=== PATIENT | female | born 1955 | race Caucasian/White ===

== ENCOUNTER 2019-05-03 17:55 | Inpatient (IN) | payer BC ==
[2019-05-03] MEDS ORDERED: Sodium Chloride 0.9% 10 ML Syringe FLUSH PRN (18:08)
[2019-05-03] MEDS ORDERED: Diltiazem 50 MG/10 ML SDV IVPUSH ONE (18:16)
--- NOTE | 2019-05-03 18:25 | EDM.PDOC ---
ED HPI GENERAL MEDICAL PROBLEM - General Chief Complaint: Cardiovascular Problem Stated Complaint: AFIB Time Seen by Provider: 05/03/19 18:06 Source of Information: Reports: Patient, Old Records, RN Notes Reviewed History Limitations: Reports: No Limitations - History of Present Illness INITIAL COMMENTS - FREE TEXT/NARRATIVE: Patient is a 64-year-old female who presents to the ED for the evaluation of atrial fibrillation. Patient notes that around 1 AM this morning, she states she was awakened from sleep for the feelings of her heart beating really fast. She has not had any associated chest pain, chest pressure or shortness of breath with this. She further denies any nausea/vomiting/diarrhea. She notes she is only aware of the heart beating fast in her chest. She did try some vagal maneuvers and Valsalva at home, however this did not seem to convert the rhythm at all. She takes an 81 mg aspirin daily. Patient notes that sometimes this just converts on its own, sometimes after 12 or 13 hours. She states this was not the case today she is to come to the ER for management. She has a primary care provider in [place], and does see an frame runner, Dr. Castillo out of [place] as well. She notes no past medical history other than the atrial fibrillation. She notes that she had an ablation done, in the early . 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 Denies: Chest Pain, Blood Pressure Problem, Dyspnea on Exertion, Lightheadedness, Syncope GI/Abdominal: Denies: Abdominal Pain, Diarrhea, Nausea, Vomiting Neurological: Denies: Headache, Numbness, Syncope, Tingling Psychiatric: Denies: Anxiety ED EXAM, GENERAL - Physical Exam Exam: See Below Exam Limited By: No Limitations General Appearance: Alert, WD/WN, No Apparent Distress Eye Exam: Bilateral Eye: EOMI, Normal Inspection, PERRL Ears: Normal External Exam Nose: Normal Inspection Throat/Mouth: Normal Inspection, Normal Lips, Normal Teeth, Normal Gums, Normal Oropharynx, Normal Voice, No Airway Compromise Head: Atraumatic, Normocephalic Neck: Normal Inspection Respiratory/Chest: No Respiratory Distress, Lungs Clear, Normal Breath Sounds, No Accessory Muscle Use, Chest Non-Tender Cardiovascular: No Edema, Tachycardia, Irregularly Irregular Peripheral Pulses: 3+: Radial (L), Radial (R) GI/Abdominal: Normal Bowel Sounds, Soft, Non-Tender, No Distention, No Mass Extremities: Normal Inspection, Normal Capillary Refill Neurological: Alert, Oriented, Normal Cognition, No Motor/Sensory Deficits Psychiatric: Normal Affect, Normal Mood Skin Exam: Warm, Dry, Intact, Normal Color, No Rash EKG INTERPRETATION EKG Date: 05/03/19 Time: 18:13 Rhythm: A-Fib (with RVR) Rate (Beats/Min): 170 [place]: Normal P-Wave: Absent QRS: Normal ST-T: Depressed (minimal in inferior leads) QT: Normal Comparison: No Change EKG Interpretation Comments: EKG was reviewed by myself and Dr. Garza, no acute ischemic changes are noted. This was also compared to prior EKGs, and seems to have no change from prior EKGs as well. Course - Vital Signs Last Recorded V/S: Last Vital Signs Temp 97.4 F 05/03/19 18:05 Pulse 150 H 05/03/19 20:16 Resp 16 05/03/19 20:37 BP 111/50 L 05/03/19 20:37 Pulse Ox 97 05/03/19 20:37 - Orders/Labs/Meds Orders: Active Orders 24 hr Category Date Time Status Admission Status [Patient Status] [ADT] Routine ADT 05/03/19 21:11 Ordered EKG Documentation Completion [RC] STAT Care 05/03/19 18:08 Active Peripheral IV Care [RC] . DIRECTED Care 05/03/19 18:08 Active Sodium Chloride 0.9% [Saline Flush] Med 05/03/19 18:08 Active 10 ml FLUSH ASDIRECTED PRN Peripheral IV Insertion Adult [OM.PC] Stat Oth 05/03/19 18:08 Ordered Medication Orders Sodium Chloride (Saline Flush) 10 ml FLUSH ASDIRECTED PRN PRN Reason: Keep Vein Open Last Admin: 05/03/19 18:28 Dose: 10 ml Labs: Laboratory Tests 05/03/19 05/03/19 05/03/19 Range/Units 18:14 18:14 18:14 WBC 11.33 H (3.98-10.04) K/mm3 RBC 5.20 (3.98-5.22) M/mm3 Hgb 15.7 (11.2-15.7) gm/dl Hct 46.9 H (34.1-44.9) % MCV 90.2 (79.4-94.8) fl MCH 30.2 (25.6-32.2) pg MCHC 33.5 (32.2-35.5) g/dl RDW Std Deviation 45.0 (36.4-46.3) fL Plt Count 225 (182-369) K/mm3 MPV 11.5 (9.4-12.3) fl Neut % (Auto) 70.6 (34.0-71.1) % Lymph % (Auto) 19.9 (19.3-51.7) % [place] % (Auto) 8.8 (4.7-12.5) % Eos % (Auto) 0.4 L (0.7-5.8) Baso % (Auto) 0.1 (0.1-1.2) % Neut # (Auto) 7.99 H (1.56-6.13) K/mm3 Lymph # (Auto) 2.26 (1.18-3.74) K/mm3 [place] # (Auto) 1.00 H (0.24-0.36) K/mm3 Eos # (Auto) 0.05 (0.04-0.36) K/mm3 Baso # (Auto) 0.01 (0.01-0.08) K/mm3 Manual Slide Review Normal smear PT 10.8 (9.7-12.0) SECONDS INR 0.99 APTT 23 D (22-31) SECONDS Sodium 140 (136-145) mEq/L Potassium 4.2 (3.5-5.1) mEq/L Chloride 103 (98-107) mEq/L Carbon Dioxide 28 (21-32) mEq/L Anion Gap 13.2 (5-15) BUN 20 H (7-18) mg/dL Creatinine 1.0 (0.55-1.02) mg/dL Est Cr Clr Drug Dosing 48.65 mL/min Estimated GFR (MDRD) 56 (>60) mL/min BUN/Creatinine Ratio 20.0 H (14-18) Glucose 137 H (80-115) mg/dL Calcium 9.0 (8.5-10.1) mg/dL Total Bilirubin 0.4 (0.2-1.0) mg/dL AST 12 L (15-37) U/L ALT 30 (14-59) U/L Alkaline Phosphatase 77 (46-116) U/L Troponin I < 0.017 (0.00-0.056) ng/mL Total Protein 7.4 (6.4-8.2) g/dl Albumin 3.9 (3.4-5.0) g/dl Globulin 3.5 gm/dL Albumin/Globulin Ratio 1.1 (1-2) Meds: Medications Generic Name Dose Route Start Last Admin Trade Name Freq PRN Reason Stop Dose Admin Sodium Chloride 10 ml 05/03/19 18:08 05/03/19 18:28 Saline Flush FLUSH 10 ml ASDIRECTED PRN Administration Keep Vein Open Discontinued Medications Generic Name Dose Route Start Last Admin Trade Name Freq PRN Reason Stop Dose Admin Diltiazem HCl 10 mg 05/03/19 18:16 05/03/19 18:27 Cardizem IVPUSH 05/03/19 18:17 10 mg ONETIME ONE Administration Sodium Chloride 1,000 mls @ 999 mls/hr 05/03/19 19:13 05/03/19 19:17 Normal Saline IV 05/03/19 20:13 999 mls/hr ONETIME ONE Administration Metoprolol Tartrate 50 mg 05/03/19 20:05 05/03/19 20:16 Lopressor PO 05/03/19 20:06 50 mg ONETIME ONE Administration - Re-Assessments/Exams Free Text/Narrative Re-Assessment/Exam: 05/03/19 18:23 Patient presents to the ED for evaluation of possible A. fib. On telemetry, she does appear to have A. fib with RVR. Did order IV to be placed, with labs to be obtained to include CBC, CMP, troponin, coag studies. 10 mg of diltiazem have been ordered for initial management. Plan is to try to put on a diltiazem drip, and possibly use Corvert if needed. Patient notes she has responded well to this in the past. 05/03/19 18:37 Was made aware by nursing staff, that the Cardizem seem to drop her heart rate a little bit, she is in the 80s at times, and ranges from 80-120. However they state that it did drop her pressure as well, to the low 90s systolically. Patient will be given some IV fluids to compensate for this at this time. 05/03/19 19:17 She was reassessed at bedside, she is gotten about 500 mL of fluid, she states that she is feeling well, she is having no chest pain or shortness of breath, she feels no palpitations in her chest any longer. I did discuss the patient's course with Dr. 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 The patient did not completely convert out of A. fib, however she does not have A. fib with RVR at this time, she should be safe to be discharged home, with strict return precautions. She verbalized understanding. 05/03/19 20:00 I was made aware by staff research scientist that when the patient was getting ready to go home , She felt her heart racing again. Her heart rate is resultantly 130s-140s. I have contacted Cardiology at [facility] at this time for further management. 05/03/19 20:07 Dr. Hernandez contacted, and she states that the patient should be on a rate control agent, and suggest Lopressor 50 mg twice daily, first dose to be given in the ER, observe her for 30 minutes to see if her rate improves. If it does improve she will be discharged with echo and stress test orders, and instructions to follow-up with Dr. Castillo within 1 week after the test have been done. If heart rate does not improve, she does suggest admission for heart rate control, with a heparin drip. 05/03/19 21:10 Patient's case was discussed with Dr. Lerner, our hospitalist, and he does accept the patient for admission to the ICU at this time for rate control due to A. fib. Departure - Departure Time of Disposition: 21:13 Disposition: Admitted As Inpatient 67 Condition: Fair Clinical Impression: Atrial fibrillation with RVR Referrals: PCP,Not In Area [Primary Care Provider] - Forms: ED Department Discharge Sepsis Event Note - Evaluation Sepsis Screening Result: No Definite Risk - Focused Exam Vital Signs: Vital Signs Temp Pulse Pulse Resp BP BP Pulse Ox 05/03/19 20:37 16 111/50 L 97 05/03/19 20:16 150 H 110/65 05/03/19 18:51 16 94/61 98 05/03/19 18:05 97.4 F 161 H 16 114/67 100 Date Exam was Performed: 05/03/19 Time Exam was Performed: 21:13 - My Orders Last 24 Hours: My Active Orders 05/03/19 18:08 EKG Documentation Completion [RC] STAT Peripheral IV Care [RC] . DIRECTED Sodium Chloride 0.9% [Saline Flush] 10 ml FLUSH ASDIRECTED PRN Peripheral IV Insertion Adult [OM.PC] Stat 05/03/19 21:11 Admission Status [Patient Status] [ADT] Routine - Assessment/Plan Last 24 Hours: My Active Orders 05/03/19 18:08 EKG Documentation Completion [RC] STAT Peripheral IV Care [RC] . DIRECTED Sodium Chloride 0.9% [Saline Flush] 10 ml FLUSH ASDIRECTED PRN Peripheral IV Insertion Adult [OM.PC] Stat 05/03/19 21:11 Admission Status [Patient Status] [ADT] Routine
[2019-05-03] MEDS ORDERED: Sodium Chloride 0.9% 1,000 ML IV ONE (19:13)
[2019-05-03] MEDS ORDERED: Metoprolol Tartrate 50 MG Tab PO ONE (20:05)
--- NOTE | 2019-05-03 22:15 | PCM.HP.2 ---
H&P History of Present Illness - General Date of Service: 05/03/19 Admit Problem/Dx: Admission Diagnosis/Problem Admission Diagnosis/Problem Atrial fibrillation Source of Information: Patient, Old Records, Provider, RN Notes Reviewed, Other History Limitations: Reports: No Limitations - History of Present Illness Initial Comments - Free Text/Narative: This is a 64 yo healthy white female with no significant past medical hx/o presents to ED for evaluation of rapid hear rate that woke her up from sleep at about 1 AM this morning. She did some vagal maneuvers at home but w/o any success. She states it usually goes back to normal after 12hrs but this time it didn't, so she came to ED for management. Patient carries a hx/o PAF in the past back in 2013 and had an ablation 10 years before that. She used to be on Cardizem but took her self off of it on her own. She denies having been diagnosed with hyperthyroidism. No heavy caffeine or stimulants intake. She does not smoke or drink ETOH. Her initial work up in ED shows a CBC remarkable for WBC of 11.33, Hct of 46.9, Eosinophils of 0.4%, Neutrophil # of 7.99, and Monocyte # of 1.00. Her Chemistry is significant for BUN of 20, BS of 137, and AST of 121. Her EKG shows afib with a HR of 170. Patient received initial treatment in ED prior to coming in to the unit for further management. 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 Exam - Exam Exam: See Below - Vital Signs Vital Signs: Last Vital Signs Temp 36.3 C 05/03/19 18:05 Pulse 60 05/03/19 21:30 Resp 20 05/03/19 21:30 BP 116/98 H 05/03/19 21:30 Pulse Ox 95 05/03/19 21:30 Weight: 53.524 kg - Exam General: Alert, Oriented, Cooperative HEENT: Conjunctiva Clear, EACs Clear, EOMI, Hearing Intact, Mucosa Moist & [place] , Nares Patent, Normal Nasal Septum, Posterior Pharynx Clear, Pupils Equal, Pupils Reactive, TMs Clear Neck: Supple, Trachea Midline, +2 Carotid Pulse wo Bruit, Full Range of Motion. No: JVD, Thyromegaly Lungs: Clear to Auscultation, Normal Respiratory Effort Cardiovascular: Irregular Rhythm, Other (Irregular rate) GI/Abdominal Exam: Normal Bowel Sounds, Soft, Non-Tender, No Organomegaly, No Distention, No Abnormal Bruit, No Mass (Female) Exam: Deferred Rectal (Female) Exam: Deferred Back Exam: Normal Inspection, Full Range of Motion Extremities: Normal Inspection, Normal Range of Motion, Non-Tender, No Pedal Edema, Normal Capillary Refill Peripheral Pulses: 2+: Posterior Tibial (L), Posterior Tibial (R), Dorsalis Pedis (L), Dorsalis Pedis (R) Skin: Warm, Dry, Intact Neuro Extensive - Mental Status: Oriented x3, Normal Cognition, Memory Intact Neuro Extensive - Motor, Sensory, Reflexes: CN II-XII Intact, Normal Gait, Normal Reflexes Psychiatric: Alert, Normal Affect, Normal Mood - Patient Data Lab Results Last 24 hrs: Laboratory Results - last 24 hr 05/03/19 05/03/19 05/03/19 Range/Units 18:14 18:14 18:14 WBC 11.33 H (3.98-10.04) K/mm3 RBC 5.20 (3.98-5.22) M/mm3 Hgb 15.7 (11.2-15.7) gm/dl Hct 46.9 H (34.1-44.9) % MCV 90.2 (79.4-94.8) fl MCH 30.2 (25.6-32.2) pg MCHC 33.5 (32.2-35.5) g/dl RDW Std Deviation 45.0 (36.4-46.3) fL Plt Count 225 (182-369) K/mm3 MPV 11.5 (9.4-12.3) fl Neut % (Auto) 70.6 (34.0-71.1) % Lymph % (Auto) 19.9 (19.3-51.7) % [place] % (Auto) 8.8 (4.7-12.5) % Eos % (Auto) 0.4 L (0.7-5.8) Baso % (Auto) 0.1 (0.1-1.2) % Neut # (Auto) 7.99 H (1.56-6.13) K/mm3 Lymph # (Auto) 2.26 (1.18-3.74) K/mm3 [place] # (Auto) 1.00 H (0.24-0.36) K/mm3 Eos # (Auto) 0.05 (0.04-0.36) K/mm3 Baso # (Auto) 0.01 (0.01-0.08) K/mm3 Manual Slide Review Normal smear PT 10.8 (9.7-12.0) SECONDS INR 0.99 APTT 23 D (22-31) SECONDS Sodium 140 (136-145) mEq/L Potassium 4.2 (3.5-5.1) mEq/L Chloride 103 (98-107) mEq/L Carbon Dioxide 28 (21-32) mEq/L Anion Gap 13.2 (5-15) BUN 20 H (7-18) mg/dL Creatinine 1.0 (0.55-1.02) mg/dL Est Cr Clr Drug Dosing 48.65 mL/min Estimated GFR (MDRD) 56 (>60) mL/min BUN/Creatinine Ratio 20.0 H (14-18) Glucose 137 H (80-115) mg/dL Calcium 9.0 (8.5-10.1) mg/dL Total Bilirubin 0.4 (0.2-1.0) mg/dL AST 12 L (15-37) U/L ALT 30 (14-59) U/L Alkaline Phosphatase 77 (46-116) U/L Troponin I < 0.017 (0.00-0.056) ng/mL Total Protein 7.4 (6.4-8.2) g/dl Albumin 3.9 (3.4-5.0) g/dl Globulin 3.5 gm/dL Albumin/Globulin Ratio 1.1 (1-2) Result Diagrams: 05/04/19 05:35 05/04/19 05:35 Sepsis Event Note - Evaluation Sepsis Screening Result: No Definite Risk - Focused Exam Vital Signs: Vital Signs Temp Pulse Pulse Resp BP BP Pulse Ox 05/03/19 21:30 60 20 116/98 H 95 05/03/19 20:37 16 111/50 L 97 05/03/19 20:16 150 H 110/65 05/03/19 18:51 16 94/61 98 05/03/19 18:05 36.3 C 161 H 16 114/67 100 Date Exam was Performed: 05/04/19 Time Exam was Performed: 13:29 Problem List Initiated/Reviewed/Updated: Yes Orders Last 24hrs: Active Orders 24 hr Category Date Time Status Admission Status [Patient Status] [ADT] Routine ADT 05/03/19 21:11 Active EKG Documentation Completion [RC] STAT Care 05/03/19 18:08 Active Sodium Chloride 0.9% [Saline Flush] Med 05/03/19 18:08 Active 10 ml FLUSH ASDIRECTED PRN Peripheral IV Insertion Adult [OM.PC] Stat Oth 05/03/19 18:08 Ordered Medication Orders Sodium Chloride (Saline Flush) 10 ml FLUSH ASDIRECTED PRN PRN Reason: Keep Vein Open Last Admin: 05/03/19 18:28 Dose: 10 ml Assessment/Plan Comment:: Acute: Atrial Fibrillation with RVR. Carries a hx/o PAF S/p Ablation in the past. Her last episode was back in 2013 and was admitted for treatment. After discharge, she took her self off medications and only on ASA. She here today with similar complaints of rapid heart rate. She was in the 170s in ED. Received initial treatment of Cardizem and Metoprolol in ED. In the unit, heart rate still variable and it goes up to as high as upper teens. [id number] score of 1-low risk. She is already on ASA but due to medical non-compliance and almost near 66 years of age, she should consider oral anticoagulant. Offered NOACs and we agreed on Xarelto for convenience. Metoprolol 15 mg po BID for rate control agent. Mild Leukocytosis with WBC of 11.33. Likely 2/2 stress. She is afebrile. Will monitor. Hyperglycemia with BS of 137. Caries no hx/o Diabetes or glucose intolerance. Likely 2/2 stress. No treatment needed. Plan: Admit to ICU with Tele. Carvedilol 12.5 mg po BID and Xarelto 15 mg po Daily for stroke prophylaxis. Will d/c ASA. regular diet. 2D echo in AM. Informed patient if she is intolerant to anticoagulation, she should consider watchman device as alternative for stroke prophylaxis. - Mortality Measure Prognosis:: Good
[2019-05-03] MEDS ORDERED: Bisacodyl 5 MG Tab PO PRN (22:56)
[2019-05-03] MEDS ORDERED: Acetaminophen 325 MG Tab PO PRN (22:56)
[2019-05-03] MEDS ORDERED: Promethazine 6.25 MG in Sodium Chloride 0.9% 50 ML IV PRN (22:56)
[2019-05-03] MEDS ORDERED: Ondansetron 4 MG/2 ML SDV IV PRN (22:56)
[2019-05-03] MEDS ORDERED: HYDROmorphone 0.5 MG/0.5 ML Syringe IVPUSH PRN (22:56)
[2019-05-03] MEDS ORDERED: Ibuprofen 600 MG Tab PO PRN (22:56)
[2019-05-03] MEDS ORDERED: Ketorolac 15 MG/ML SDV IVPUSH PRN (22:56)
[2019-05-03] MEDS ORDERED: Polyethylene Glycol 3350 Powder 17 GM Packet PO PRN (22:56)
[2019-05-03] MEDS ORDERED: Temazepam 7.5 MG Cap PO PRN (22:56)
[2019-05-03] MEDS ORDERED: Docusate Sodium 100 MG Cap PO PRN (22:56)
[2019-05-03] MEDS ORDERED: Albuterol/Ipratropium 3.0-0.5 MG/3 ML Neb Soln NEB PRN (22:56)
[2019-05-03] MEDS ORDERED: Metoprolol Tartrate 5 MG/5 ML SDV IVPUSH PRN (22:58)
[2019-05-03] MEDS ORDERED: Rivaroxaban 10 MG Tab PO ONE ×2 (22:58→23:55)
[2019-05-03] MEDS ORDERED: Metoprolol Tartrate 25 MG Tab PO SCH (23:00)
[2019-05-03] MEDS ORDERED: Carvedilol 12.5 MG Tab PO ONE (23:55)
[2019-05-04] MEDS ORDERED: Carvedilol 12.5 MG Tab PO SCH (07:00)
[2019-05-04 08:06] VITALS: BP 124/76
[2019-05-04 08:12] VITALS: PULSE 76
--- NOTE | 2019-05-04 10:55 | PCM.DCSUM1 ---
Discharge Summary - Hospital Course Diagnosis: Stroke: No - Discharge Data Discharge Date: 05/04/19 Discharge Disposition: Home, Self-Care 01 Condition: Good - Referral to Home Health Primary Care Physician: PCP Not In Area - Patient Summary/Data Consults: Consultations 05/03/19 22:56 Consult to Case Management/Bookmaker Map [CONS] Routine - Patient Instructions Diet: Heart Healthy Diet - Discharge Plan *PRESCRIPTION DRUG MONITORING PROGRAM REVIEWED*: Not Applicable *COPY OF PRESCRIPTION DRUG MONITORING REPORT IN PATIENT MARLON: Not Applicable Prescriptions/Med Rec: carvediloL [Coreg] 12.5 mg PO BIDMEALS #60 tablet Rivaroxaban [Xarelto] 15 mg PO WITHDINNER #45 tablet Rivaroxaban [Xarelto] 20 mg PO DAILY #30 tablet Home Medications: Home Meds Rivaroxaban [Xarelto] 15 mg PO WITHDINNER #45 tablet 05/04/19 [Rx] Rivaroxaban [Xarelto] 20 mg PO DAILY #30 tablet 05/04/19 [Rx] carvediloL [Coreg] 12.5 mg PO BIDMEALS #60 tablet 05/04/19 [Rx] Patient Handouts: Rivaroxaban oral tablets Forms: ED Department Discharge Referrals: PCP,Not In Area [Primary Care Provider] - - General Info Date of Service: 05/04/19 Subjective Update: Patient is feeling ok, tolerating diet, ambulating, rate controlled, no shortness of breath, palpitations or chest pain - Patient Data Vitals - Most Recent: Last Vital Signs Temp 97.6 F 05/04/19 08:00 Pulse 76 05/04/19 08:11 Resp 20 05/04/19 08:00 BP 124/76 05/04/19 08:11 Pulse Ox 98 05/04/19 08:00 Weight - Most Recent: 55.792 kg Lab Results - Last 24 hrs: Laboratory Results - last 24 hr 05/03/19 05/03/19 05/03/19 Range/Units 18:14 18:14 18:14 WBC 11.33 H (3.98-10.04) K/mm3 RBC 5.20 (3.98-5.22) M/mm3 Hgb 15.7 (11.2-15.7) gm/dl Hct 46.9 H (34.1-44.9) % MCV 90.2 (79.4-94.8) fl MCH 30.2 (25.6-32.2) pg MCHC 33.5 (32.2-35.5) g/dl RDW Std Deviation 45.0 (36.4-46.3) fL Plt Count 225 (182-369) K/mm3 MPV 11.5 (9.4-12.3) fl Neut % (Auto) 70.6 (34.0-71.1) % Lymph % (Auto) 19.9 (19.3-51.7) % O[place]Brien % (Auto) 8.8 (4.7-12.5) % Eos % (Auto) 0.4 L (0.7-5.8) Baso % (Auto) 0.1 (0.1-1.2) % Neut # (Auto) 7.99 H (1.56-6.13) K/mm3 Lymph # (Auto) 2.26 (1.18-3.74) K/mm3 O[place]Brien # (Auto) 1.00 H (0.24-0.36) K/mm3 Eos # (Auto) 0.05 (0.04-0.36) K/mm3 Baso # (Auto) 0.01 (0.01-0.08) K/mm3 Manual Slide Review Normal smear PT 10.8 (9.7-12.0) SECONDS INR 0.99 APTT 23 D (22-31) SECONDS Sodium 140 (136-145) mEq/L Potassium 4.2 (3.5-5.1) mEq/L Chloride 103 (98-107) mEq/L Carbon Dioxide 28 (21-32) mEq/L Anion Gap 13.2 (5-15) BUN 20 H (7-18) mg/dL Creatinine 1.0 (0.55-1.02) mg/dL Est Cr Clr Drug Dosing 48.65 mL/min Estimated GFR (MDRD) 56 (>60) mL/min BUN/Creatinine Ratio 20.0 H (14-18) Glucose 137 H (80-115) mg/dL Calcium 9.0 (8.5-10.1) mg/dL Magnesium (1.8-2.4) mg/dl Total Bilirubin 0.4 (0.2-1.0) mg/dL AST 12 L (15-37) U/L ALT 30 (14-59) U/L Alkaline Phosphatase 77 (46-116) U/L Troponin I < 0.017 (0.00-0.056) ng/mL Total Protein 7.4 (6.4-8.2) g/dl Albumin 3.9 (3.4-5.0) g/dl Globulin 3.5 gm/dL Albumin/Globulin Ratio 1.1 (1-2) Free T4 (0.76-1.46) ng/dL TSH 3rd Generation (0.358-3.74) uIU/mL 05/04/19 05/04/19 05/04/19 Range/Units 05:35 05:35 05:35 WBC 9.27 (3.98-10.04) K/mm3 RBC 4.51 (3.98-5.22) M/mm3 Hgb 13.5 D (11.2-15.7) gm/dl Hct 41.2 (34.1-44.9) % MCV 91.4 (79.4-94.8) fl MCH 29.9 (25.6-32.2) pg MCHC 32.8 (32.2-35.5) g/dl RDW Std Deviation 45.4 (36.4-46.3) fL Plt Count 191 (182-369) K/mm3 MPV 12.5 H (9.4-12.3) fl Neut % (Auto) 66.6 (34.0-71.1) % Lymph % (Auto) 24.1 (19.3-51.7) % O[place]Brien % (Auto) 8.4 (4.7-12.5) % Eos % (Auto) 0.6 L (0.7-5.8) Baso % (Auto) 0.1 (0.1-1.2) % Neut # (Auto) 6.17 H (1.56-6.13) K/mm3 Lymph # (Auto) 2.23 (1.18-3.74) K/mm3 O[place]Brien # (Auto) 0.78 H (0.24-0.36) K/mm3 Eos # (Auto) 0.06 (0.04-0.36) K/mm3 Baso # (Auto) 0.01 (0.01-0.08) K/mm3 Manual Slide Review PT (9.7-12.0) SECONDS INR APTT (22-31) SECONDS Sodium 142 (136-145) mEq/L Potassium 4.5 (3.5-5.1) mEq/L Chloride 108 H (98-107) mEq/L Carbon Dioxide 27 (21-32) mEq/L Anion Gap 11.5 (5-15) BUN 14 (7-18) mg/dL Creatinine 0.7 (0.55-1.02) mg/dL Est Cr Clr Drug Dosing 72.45 mL/min Estimated GFR (MDRD) > 60 (>60) mL/min BUN/Creatinine Ratio 20.0 H (14-18) Glucose 94 (80-115) mg/dL Calcium 8.9 (8.5-10.1) mg/dL Magnesium 2.0 (1.8-2.4) mg/dl Total Bilirubin (0.2-1.0) mg/dL AST (15-37) U/L ALT (14-59) U/L Alkaline Phosphatase (46-116) U/L Troponin I (0.00-0.056) ng/mL Total Protein (6.4-8.2) g/dl Albumin (3.4-5.0) g/dl Globulin gm/dL Albumin/Globulin Ratio (1-2) Free T4 0.93 (0.76-1.46) ng/dL TSH 3rd Generation 2.949 (0.358-3.74) uIU/mL Med Orders - Current: Current Medications Acetaminophen (Tylenol) 650 mg PO Q4H PRN PRN Reason: Pain (Mild 1-3)/fever Albuterol/Ipratropium (Duoneb 3.0-0.5 Mg/3 Ml) 3 ml NEB Q4H PRN PRN Reason: Shortness Of Breath/wheezing Bisacodyl (Dulcolax) 5 mg PO DAILY PRN PRN Reason: Constipation Carvedilol (Coreg) 12.5 mg PO BIDMEALS [facility] Last Admin: 05/04/19 08:11 Dose: 12.5 mg Docusate Sodium (Colace) 100 mg PO BID PRN PRN Reason: Constipation Hydromorphone HCl (Dilaudid) 0.25 mg IVPUSH Q2H PRN PRN Reason: Pain (severe 7-10) Promethazine HCl 6.25 mg/ (Sodium Chloride) 50.25 mls @ 100 mls/hr IV Q6H PRN PRN Reason: Nausea/Vomiting Ketorolac Tromethamine (Toradol) 15 mg IVPUSH Q6H PRN PRN Reason: Pain (moderate 4-6) Stop: 05/08/19 22:57 Metoprolol Tartrate (Lopressor) 5 mg IVPUSH Q4H PRN PRN Reason: Tachycardia Ondansetron HCl (Zofran) 4 mg IV Q6H PRN PRN Reason: Nausea/Vomiting Polyethylene Glycol (Miralax) 17 gm PO DAILY PRN PRN Reason: Constipation Rivaroxaban (Xarelto) 15 mg PO WITHDINNER [facility] Senna/Docusate Sodium (Senna Plus) 1 tab PO BID PRN PRN Reason: Constipation Sodium Chloride (Saline Flush) 10 ml FLUSH ASDIRECTED PRN PRN Reason: Keep Vein Open Last Admin: 05/03/19 18:28 Dose: 10 ml Temazepam (Restoril) 7.5 mg PO BEDTIME PRN PRN Reason: Sleep Discontinued Medications Carvedilol (Coreg) 12.5 mg PO ONETIME ONE Stop: 05/03/19 23:56 Last Admin: 05/04/19 00:28 Dose: 12.5 mg Diltiazem HCl (Cardizem) 10 mg IVPUSH ONETIME ONE Stop: 05/03/19 18:17 Last Admin: 05/03/19 18:27 Dose: 10 mg Sodium Chloride (Normal Saline) 1,000 mls @ 999 mls/hr IV ONETIME ONE Stop: 05/03/19 20:13 Last Admin: 05/03/19 19:17 Dose: 999 mls/hr Ibuprofen (Motrin) 600 mg PO Q6H PRN PRN Reason: Pain (moderate 4-6) Metoprolol Tartrate (Lopressor) 50 mg PO ONETIME ONE Stop: 05/03/19 20:06 Last Admin: 05/03/19 20:16 Dose: 50 mg Metoprolol Tartrate (Lopressor) 25 mg PO Q12H [facility] Last Admin: 05/04/19 00:00 Dose: Not Given Rivaroxaban (Xarelto) 20 mg PO BEDTIME ARELI Rivaroxaban (Xarelto) 15 mg PO ONETIME ONE Stop: 05/03/19 23:56 Last Admin: 05/04/19 00:28 Dose: 15 mg - Exam Quality Assessment: Denies: Supplemental Oxygen General: Reports: Alert, Oriented, Cooperative, No Acute Distress HEENT: Reports: Pupils Equal, Pupils Reactive, Mucous Membr. Moist/[place]: Reports: Supple, Trachea Midline, No JVD, No Thyromegaly Lungs: Reports: Clear to Auscultation, Normal Respiratory Effort. Denies: Crackles, Rales, Rhonchi Cardiovascular: Reports: Regular Rate, Regular Rhythm. Denies: Murmurs, Gallops , Rubs GI/Abdominal Exam: Normal Bowel Sounds, Soft, Non-Tender Extremities: Normal Inspection, Normal Range of Motion, Non-Tender, No Pedal Edema Neurological: Reports: No New Focal Deficit Psy/Mental Status: Reports: Alert, Normal Affect, Normal Mood
[2019-05-04] MEDS ORDERED: Rivaroxaban 10 MG Tab PO SCH ×2 (17:00→21:00)
== END 2019-05-04 11:15 | disposition home or self-care (01) | DRG 201 ==
LOC: JD.ED 17:55 → JD.ICU 21:17
PROVIDERS: ADMIT Internal Medicine; ATTEND Internal Medicine
DX: I48.91 Unspecified atrial fibrillation (principal); D72.829 Elevated white blood cell count, unspecified; R73.9 Hyperglycemia, unspecified; F43.9 Reaction to severe stress, unspecified; Z90.710 Acquired absence of both cervix and uterus; Z88.2 Allergy status to sulfonamides; Z79.82 Long term (current) use of aspirin
CPT/HCPCS: 36415; 80048; 80053; 83735; 84439; 84443; 84484; 85025; 85610; 85730; 93005; 93010; 96361; 96374; 99284; 99285-25; A9270-GY; J3490; J7030

== ENCOUNTER 2022-09-09 07:54 | Emergency (ER) | payer MEDICARE, BC ==
[2022-09-09] MEDS ORDERED: Sodium Chloride 0.9% 10 ML Syringe FLUSH PRN (08:06)
[2022-09-09] MEDS ORDERED: Diltiazem 25 MG/5 ML SDV IVPUSH ONE (08:09)
[2022-09-09] MEDS ORDERED: Diltiazem 125 MG in Sodium Chloride 0.9% 100 ML IV SCH (08:15)
[2022-09-09] MEDS ORDERED: HYDROmorphone 0.5 MG/0.5 ML Syringe IVPUSH ONE (08:16)
[2022-09-09 08:19] LABS: BASOPHILS ABSOLUTE AUTO 0.01 K/mm3 (0.01-0.08); BASOPHILS PERCENT AUTO 0.1 % (0.1-1.2); EOSINOPHILS ABSOLUTE AUTO 0.09 K/mm3 (0.04-0.36); EOSINOPHILS PERCENT AUTO 0.9 (0.7-5.8); HEMATOCRIT 47.5 % (34.1-44.9); HEMOGLOBIN 16.1 gm/dl (11.2-15.7); IMMATURE GRAN ABSOLUTE AUTO 0.02 K/mm3 (0.00-0.10); IMMATURE GRAN PERCENT AUTO 0.2 % (<=1.0); LYMPHOCYTES ABSOLUTE AUTO 1.17 K/mm3 (1.18-3.74); LYMPHOCYTES PERCENT AUTO 11.9 % (19.3-51.7); MEAN CORPUSCULAR HEMOGLOBIN 30.9 pg (25.6-32.2); MEAN CORPUSCULAR HGB CONC 33.9 g/dl (32.2-35.5); MEAN CORPUSCULAR VOLUME 91.2 fl (79.4-94.8); MEAN PLATELET VOLUME 12.4 fl (9.4-12.3); MONOCYTES ABSOLUTE AUTO 0.59 K/mm3 (0.24-0.36); NEUTROPHILS ABSOLUTE AUTO 7.99 K/mm3 (1.56-6.13); NEUTROPHILS PERCENT AUTO 80.9 % (34.0-71.1); PLATELET COUNT,PLT 216 K/mm3 (182-369); RED BLOOD CELL COUNT 5.21 M/mm3 (3.98-5.22); WHITE BLOOD CELL COUNT,WBC 9.87 K/mm3 (3.98-10.04)
[2022-09-09 08:24] LABS: INR 1.07; PROTHROMBIN TIME 11.4 SECONDS (9.7-12.0)
[2022-09-09 08:39] LABS: ALANINE AMINOTRANSFERASE,ALT 32 U/L (14-59); ALBUMIN 3.6 g/dl (3.4-5.0); ALKALINE PHOSPHATASE 86 U/L (46-116); ANION GAP 12.7 (5-15); ASPARTATE AMNIOTRANSFERASE,AST 19 U/L (15-37); BILIRUBIN TOTAL 0.4 mg/dL (0.2-1.0); BLOOD UREA NITROGEN,BUN 14 mg/dL (7-18); BUN/CREATININE RATIO 15.6 (14-18); C-REACTIVE PROTEIN <0.2 mg/dL (<1.0); CALCIUM 8.8 mg/dL (8.5-10.1); CARBON DIOXIDE,CO2 28 mEq/L (21-32); CHLORIDE,CL 103 mEq/L (98-107); CREATININE 0.9 mg/dL (0.55-1.02); EST CRCL DRUG DOSING (CG) 52.83 mL/min; ESTIMATED GFR 71 mL/min (>60); GLUCOSE RANDOM 146 mg/dL (70-99); POTASSIUM,K 4.7 mEq/L (3.5-5.1); PROTEIN TOTAL,TP 7.1 g/dl (6.4-8.2); SODIUM,NA 139 mEq/L (136-145); TROPONIN I HIGH SENSITIVITY 14 pg/mL (<=51); TSH 2.487 uIU/mL (0.358-3.74)
[2022-09-09] MEDS ORDERED: Sodium Chloride 0.9% 500 ML IV ONE (08:42)
[2022-09-09 09:03] VITALS: BP 101/68; PULSE 77
[2022-09-09 10:05] LABS: APPEARANCE,URINE CLEAR (Clear); BILIRUBIN,URINE NEGATIVE (Negative); COLOR,URINE YELLOW (Yellow); GLUCOSE,URINE NEGATIVE (Negative); KETONES,URINE NEGATIVE (Negative); LEUKOCYTE ESTERASE,URINE NEGATIVE (Negative); NITRITE,URINE NEGATIVE (Negative); OCCULT BLOOD,URINE NEGATIVE (Negative); PROTEIN,URINE NEGATIVE (Negative); UROBILINOGEN,URINE 0.2 (0.2-1.0)
== END 2022-09-09 10:48 | disposition home or self-care (01) ==
LOC: JD.ED 07:54
DX: S09.90XA Unspecified injury of head, initial encounter (principal); R55 Syncope and collapse; I48.91 Unspecified atrial fibrillation; Z88.2 Allergy status to sulfonamides; Z79.01 Long term (current) use of anticoagulants; Z79.899 Other long term (current) drug therapy; W18.30XA Fall on same level, unspecified, initial encounter
CPT/HCPCS: 36415; 70450; 71045; 80053; 81003; 84443; 84484; 85025; 85610; 86140; 93005; 96365; 99284; J3490; J7030

== ENCOUNTER 2022-12-26 09:43 | Emergency (ER) | payer MEDICARE, BC ==
[2022-12-26 10:20] LABS: BASOPHILS PERCENT AUTO 0.2 % (0.0-1.0); EOSINOPHILS ABSOLUTE AUTO 0.2 K/mm3 (0.0-0.4); EOSINOPHILS PERCENT AUTO 1.9 % (0.0-6.0); HEMATOCRIT 45.3 % (37.0-47.0); HEMOGLOBIN 15.6 gm/dl (12.0-16.0); IMMATURE GRAN ABSOLUTE AUTO 0.03 K/mm3 (0.00-0.05); IMMATURE GRAN PERCENT AUTO 0.3 % (0.0-0.4); LYMPHOCYTES ABSOLUTE AUTO 1.2 K/mm3 (1.0-4.8); LYMPHOCYTES PERCENT AUTO 11.9 % (24.0-44.0); MEAN CORPUSCULAR HGB CONC 34.4 g/dl (32.0-36.0); MEAN CORPUSCULAR VOLUME 90.1 fl (83.0-99.0); MEAN PLATELET VOLUME 11.8 fl (9.4-12.3); MONOCYTES ABSOLUTE AUTO 0.6 K/mm3 (0.0-0.8); MONOCYTES PERCENT AUTO 6.4 % (0.0-8.0); NEUTROPHILS ABSOLUTE AUTO 7.7 K/mm3 (1.8-7.7); NEUTROPHILS PERCENT AUTO 79.3 % (41.0-71.0); PLATELET COUNT,PLT 196 K/mm3 (150-400); RED BLOOD CELL COUNT 5.03 M/mm3 (4.10-5.30); WHITE BLOOD CELL COUNT,WBC 9.72 K/mm3 (3.9-11.3)
[2022-12-26 10:37] LABS: INR 1.04; PROTHROMBIN TIME 11.1 SECONDS (9.7-12.0)
[2022-12-26 10:38] LABS: D-DIMER QUANTITATIVE 0.21 mg/L (0.19-0.50)
[2022-12-26 10:51] LABS: A/G RATIO 1.2 (1-2); ALANINE AMINOTRANSFERASE,ALT 28 U/L (14-59); ALBUMIN 3.8 g/dl (3.4-5.0); ALKALINE PHOSPHATASE 82 U/L (46-116); ANION GAP 11.1 (5-15); ASPARTATE AMNIOTRANSFERASE,AST 13 U/L (15-37); BILIRUBIN TOTAL 0.4 mg/dL (0.2-1.0); BLOOD UREA NITROGEN,BUN 10 mg/dL (7-18); BUN/CREATININE RATIO 12.5 (14-18); C-REACTIVE PROTEIN <0.2 mg/dL (<1.0); CALCIUM 9.2 mg/dL (8.5-10.1); CARBON DIOXIDE,CO2 28 mEq/L (21-32); CHLORIDE,CL 103 mEq/L (98-107); CREATININE 0.8 mg/dL (0.55-1.02); EST CRCL DRUG DOSING (CG) 58.97 mL/min; ESTIMATED GFR 81 mL/min (>60); GLUCOSE RANDOM 126 mg/dL (70-99); MAGNESIUM 2.1 mg/dL (1.8-2.4); POTASSIUM,K 4.1 mEq/L (3.5-5.1); PROTEIN TOTAL,TP 7.1 g/dl (6.4-8.2); SODIUM,NA 138 mEq/L (136-145); TROPONIN I HIGH SENSITIVITY 6 pg/mL (<=51); TSH 2.008 uIU/mL (0.358-3.74)
[2022-12-26 12:01] VITALS: BP 145/79; PULSE 75
== END 2022-12-26 12:01 | disposition home or self-care (01) ==
LOC: JD.ED 09:43
DX: K59.00 Constipation, unspecified (principal); I48.91 Unspecified atrial fibrillation; Z79.01 Long term (current) use of anticoagulants; Z88.2 Allergy status to sulfonamides
CPT/HCPCS: 36415; 74019; 74019-26; 80053; 83735; 83880; 84443; 84484; 85025; 85379; 85610; 86140; 93005; 93010; 99283; 99284